=== PATIENT | female | born 1985 | race Two or more races ===

== ENCOUNTER 2016-10-30 16:49 | Emergency (ER) | payer OTHER ==
[~2016-10-30] VITALS: Ht 162.6 cm; Wt 56.0 kg
[~2016-10-30 16:49] MED LIST: ENDOCET 5-3251 EACH PO; IBUPROFEN800 MG PO; TYLENOL EXTRA500 MG PO
[2016-10-30 18:55] LABS: ADD MIUA? YES; BILIRUBIN NEGATIVE; BLOOD SMALL; COLOR STRAW ((YELLOW)); GLUCOSE (STRIP) NEGATIVE; KETONES NEGATIVE; LEUKOCYTES NEGATIVE; NITRITE NEGATIVE; PROTEIN (STRIP) NEGATIVE; SPECIFIC GRAVITY 1.006 (1.000-1.030); UROBILINOGEN 0.2 MG/DL (0.2-1.0)
[2016-10-30 18:58] LABS: BACTERIA RARE /HPF; EPITHELIAL CELLS RARE /HPF; MUCUS NONE SEEN /LPF; RED BLOOD CELLS 0-5 /HPF (0-5); WHITE BLOOD CELLS 0-5 /HPF (0-5)
[2016-10-30 19:08] LABS: HEMATOCRIT 41.1 % (36.0-46.0); MCH 27.1 PG (29.0-34.0); MCHC 32.1 G/DL (30.0-36.0); MCV 84.4 FL (83-99); MEAN PLAT.VOLUME 9.5 uM^3 (9.5-12.4); PLATELET COUNT 246 K/uL (156-360); RBC DIS.WIDTH-CV 12.5 % (11.8-14.6); RBC DIS.WIDTH-SD 38.3 % (39-53); RED BLOOD COUNT 4.87 M/uL (3.80-5.20); WHITE BLOOD COUNT 5.1 K/uL (4.1-10.2)
[2016-10-30 19:22] LABS: CASTS NONE SEEN /LPF; CRYSTALS NONE SEEN
[2016-10-30 19:22] LABS: CHLORIDE 106 mEq/L (99-109); POTASSIUM 3.7 mEq/L (3.7-5.4); SODIUM 142 mEq/L (136-147)
[2016-10-30 19:24] LABS: GLUCOSE 138 mg/dL (70-99)
[2016-10-30 19:26] LABS: ANION GAP 10 MEQ/L (2-14); TOTAL BILIRUBIN 0.2 mg/dL (0.0-1.0)
[2016-10-30 19:28] LABS: ALKALINE PHOSPHATASE 100 IU/L (3-129); GFR ESTIMATE (CALCULATED) > 59 mL/min/
[2016-10-30 19:29] LABS: UREA NITROGEN (BUN) 8 mg/dL (9-23)
[2016-10-30 19:37] LABS: QUANTITATIVE HCG < 4.0 MIU/ML
[2016-10-30] MEDS ORDERED: KEFLEX500 MG PO (21:57)
[2016-10-30] MEDS ORDERED: MOTRIN600 MG PO (21:57)
[2016-10-30 22:07] VITALS: BP 120/70
== END 2016-10-30 22:08 | disposition home or self-care (01) ==
LOC: EME 16:49
PROVIDERS: Nurse Practitioner Family
DX: N15.9 Renal tubulo-interstitial disease, unspecified (principal); M54.5 Low back pain
CPT/HCPCS: 74176; 80053; 81003; 84702; 85027; 87086; 99281; 99285

== ENCOUNTER 2017-12-08 12:40 | Emergency (ER) | payer OTHER ==
[~2017-12-08] VITALS: Ht 162.6 cm; Wt 68.2 kg
[~2017-12-08 12:40] MED LIST changes: +KEFLEX500 MG PO; +MOTRIN600 MG PO
[2017-12-08 12:48] VITALS: BP 146/89
[2017-12-08] MEDS ORDERED: KEFLEX500 MG PO (13:37)
[2017-12-08 13:47] LABS: SOURCE SWAB
== END 2017-12-08 13:54 | disposition home or self-care (01) ==
LOC: EME 12:40
PROVIDERS: Nurse Practitioner Acute Care
DX: T19.2XXA Foreign body in vulva and vagina, initial encounter (principal); X58.XXXA Exposure to other specified factors, initial encounter
CPT/HCPCS: 81003; 81025; 87210; 87491; 87591; 99281; 99283